=== PATIENT | female | born 1955 | race Caucasian/White ===

== ENCOUNTER 2019-04-14 09:54 | Outpatient (CLI) | payer BC ==
--- NOTE | 2019-04-14 10:32 | MMO ---
Bilateral MAMMO Bilat Screen [facility]. CLINICAL HISTORY: Patient is 63 years old and is seen for screening. The patient has no family history of breast cancer. The patient has no personal history of cancer. VIEWS: The views performed were: bilateral craniocaudal with tomosynthesis; bilateral mediolateral oblique with tomosynthesis; and left mediolateral oblique. FILMS COMPARED: The present examination has been compared to prior imaging studies performed at [facility] on 02/14/2012, 02/15/2012, 11/12/2013 and 05/16/2016. This study has been interpreted with the assistance of computer-aided detection. MAMMOGRAM FINDINGS: There are scattered fibroglandular densities. Finding 1: There are stable benign appearing calcifications seen in both breasts. Finding 2: There are nodules seen in both breasts. There are no suspicious masses, suspicious calcifications, or new areas of architectural distortion. IMPRESSION: THERE IS NO MAMMOGRAPHIC EVIDENCE OF MALIGNANCY. A ROUTINE FOLLOW-UP MAMMOGRAM IN 1 YEAR IS RECOMMENDED. THE RESULTS OF THIS EXAM WERE SENT TO THE PATIENT. ACR BI-RADS Category 2 - Benign finding MAMMOGRAPHY NOTE: 1. A negative mammogram report should not delay a biopsy if a dominant of clinically suspicious mass is present. 2. Approximately 10% to 15% of breast cancers are not detected by mammography. 3. Adenosis and dense breasts may obscure an underlying neoplasm. Reported by: ARPIT ESPINAL MD Electonically Signed: [id number]
== END 2019-04-14 09:55 | disposition home or self-care (01) ==
LOC: BICMAMMO 09:54
PROVIDERS: ATTEND Physician Assistant
DX: Z12.31 Encounter for screening mammogram for malignant neoplasm of breast (principal)
CPT/HCPCS: 77063; 77067

== ENCOUNTER 2020-08-30 08:59 | Inpatient (IN) | payer OTHER, MEDICARE, BC ==
[2020-08-30 09:36] LABS: #Basophils 0.1 thou/uL (0.0-0.2); #Eosinphils 0.2 thou/uL (0.0-0.7); #Lymphocytes 2.4 thou/uL (1.20-3.40); #Monocytes 0.3 thou/uL (0.11-0.59); #Neutrophils 6.4 thou/uL (1.40-6.50); %Basophils 0.5 % (0.0-1.0); %Eosinophils 2.3 % (0.0-10.0); %Lymphocytes 25.9 % (21.0-51.0); %Monocytes 3.3 % (0.0-10.0); %Neutrophils 68.1 % (42.0-75.0); Hemoglobin 13.8 g/dL (12.0-16.0); Mean Corpuscular Hemoglobin 27.9 pg (27.0-31.0); Mean Corpuscular Volume 87.1 fL (78.0-98.0); Mean Platelet Volume 7.3 fL (7.4-10.4); Platelet Count 251 thou/uL (130-400); RBC Distribution Width 13.1 % (11.5-14.5); Red Blood Cell (RBC) Count 4.93 mill/uL (4.20-5.40); White Blood Cell (WBC) Count 9.5 thou/uL (4.8-10.8)
[2020-08-30] MEDS ORDERED: Iopamidol-370 76% 500 ML 1 ML ONE (09:46)
[2020-08-30 09:52] LABS: ALT (SGPT) 33 U/L (8-55); AST (SGOT) 27 U/L (5-34); Albumin 4.1 g/dL (3.4-4.8); Alkaline Phosphatase 108 U/L (40-110); Anion Gap 10 mmol/L (10-20); BUN (Urea Nitrogen) 13 mg/dL (9.8-20.1); Bilirubin, Total 0.4 mg/dL (0.2-1.2); Calc. Creatinine Clearance 0 mL/min (70-130); Calcium 8.9 mg/dL (7.8-10.44); Carbon Dioxide 28 mmol/L (23-31); Chloride 104 mmol/L (98-107); Globulin 3.2 g/dL (2.4-3.5); Glucose 102 mg/dL (80-115); Potassium 3.7 mmol/L (3.5-5.1); Protein, Total 7.3 g/dL (5.8-8.1); Sodium 138 mmol/L (136-145)
[2020-08-30] MEDS ORDERED: Morphine 4 MG/ML VIAL ONE (13:23)
[2020-08-30] MEDS ORDERED: Morphine 2 MG/ML VIAL ONE (13:23)
[2020-08-30] MEDS ORDERED: Pantoprazole 40 MG VIAL ONE (13:54)
[2020-08-30] MEDS ORDERED: Fentanyl 100 MCG/2 ML VIAL ONE (13:54)
[2020-08-30] MEDS ORDERED: Ondansetron PF 4 MG/2 ML Vial ONE (13:54)
[2020-08-30] MEDS ORDERED: traMADol HCl 50 MG TAB PO PRN (14:49)
[2020-08-30] MEDS ORDERED: Ibuprofen 200 MG TAB ONE (16:04)
[2020-08-30] MEDS ORDERED: Acetaminophen 325 MG TAB ONE (16:04)
[2020-08-30] MEDS: Acetaminophen 325 MG TAB PO SCH ×2 (16:18→21:31)
[2020-08-30] MEDS: Gabapentin 300 MG CAP PO SCH ×2 (16:20→21:30)
[2020-08-30] MEDS: Lactated Ringer's 1,000 ML IV SCH (16:21)
[2020-08-30] MEDS: Ibuprofen 200 MG TAB PO SCH ×2 (16:21→22:42)
[2020-08-30] MEDS ORDERED: Dextrose 5% in Water 1,000 ML IV PRN (19:31)
[2020-08-30] MEDS ORDERED: Dextrose 50% Abboject 50 ML SYRINGE SLOW IVP PRN (19:31)
[2020-08-30] MEDS ORDERED: Ondansetron PF 4 MG/2 ML Vial IVP PRN (19:31)
[2020-08-30] MEDS ORDERED: Lorazepam 2 MG/ML VIAL SLOW IVP PRN (19:31)
[2020-08-30 19:33] VITALS: BMI 35.2
[2020-08-30] MEDS ORDERED: Famotidine/PF 20 mg/2ml Vial SLOW IVP SCH (21:00)
[2020-08-30] MEDS ORDERED: Cyclobenzaprine 10 MG TAB PO PRN (21:18)
[2020-08-30] MEDS: traMADol HCl 50 MG TAB PO SCH (21:29)
[2020-08-30] MEDS: Senokot S 8.6-50 MG TAB PO SCH (21:30)
[2020-08-30] MEDS: Morphine 2 MG/ML VIAL SLOW IVP PRN (21:32)
[2020-08-30 23:09] LABS: SARS-CoV-2 PCR by NAA Not Detected (NotDetected)
[2020-08-31] MEDS: traMADol HCl 50 MG TAB PO SCH ×5 (01:33→23:58)
[2020-08-31] MEDS: Lactated Ringer's 1,000 ML IV SCH ×3 (03:04→14:21)
[2020-08-31] MEDS: Acetaminophen 325 MG TAB PO SCH ×4 (03:04→21:50)
[2020-08-31] MEDS: Morphine 2 MG/ML VIAL SLOW IVP PRN (03:11)
[2020-08-31 04:46] LABS: #Lymphocytes 2.2 thou/uL (1.20-3.40); #Monocytes 0.3 thou/uL (0.11-0.59); #Neutrophils 3.7 thou/uL (1.40-6.50); %Basophils 0.7 % (0.0-1.0); %Eosinophils 0.8 % (0.0-10.0); %Lymphocytes 34.6 % (21.0-51.0); %Monocytes 4.2 % (0.0-10.0); %Neutrophils 59.7 % (42.0-75.0); Hemoglobin 10.8 g/dL (12.0-16.0); Mean Corpuscular HGB CONC 33.4 g/dL (32.0-36.0); Mean Corpuscular Hemoglobin 29.2 pg (27.0-31.0); Mean Corpuscular Volume 87.4 fL (78.0-98.0); Mean Platelet Volume 7.6 fL (7.4-10.4); Platelet Count 219 thou/uL (130-400); Red Blood Cell (RBC) Count 3.68 mill/uL (4.20-5.40); White Blood Cell (WBC) Count 6.3 thou/uL (4.8-10.8)
[2020-08-31] MEDS: Ibuprofen 200 MG TAB PO SCH ×3 (06:15→23:56)
[2020-08-31] MEDS ORDERED: Famotidine 20 MG TAB PO SCH (09:00)
[2020-08-31] MEDS: Gabapentin 300 MG CAP PO SCH ×3 (10:59→23:52)
[2020-08-31] MEDS: Polyethylene Glycol 3350 17 GM Packet PO SCH (11:01)
[2020-08-31] MEDS: Senokot S 8.6-50 MG TAB PO SCH ×2 (11:01→21:52)
[2020-08-31] MEDS ORDERED: Dicyclomine 10 MG CAP PO PRN (17:52)
[2020-08-31] MEDS: Mometasone 100 MCG/Formoterol 5 MCG 120 PUFF INHALER INH SCH (18:54)
[2020-08-31] MEDS: Aspirin 81 mg Enteric Coated Tablet PO SCH (21:52)
[2020-09-01] MEDS: traMADol HCl 50 MG TAB PO SCH ×4 (06:06→23:48)
[2020-09-01] MEDS: Levothyroxine Sodium 25 MCG TAB PO SCH (06:07)
[2020-09-01] MEDS: Acetaminophen 325 MG TAB PO SCH ×4 (06:11→20:07)
[2020-09-01] MEDS: Mometasone 100 MCG/Formoterol 5 MCG 120 PUFF INHALER INH SCH ×2 (07:52→18:33)
[2020-09-01] MEDS: Senokot S 8.6-50 MG TAB PO SCH ×2 (08:00→20:07)
[2020-09-01] MEDS: Gabapentin 300 MG CAP PO SCH ×3 (08:00→20:07)
[2020-09-01] MEDS: Polyethylene Glycol 3350 17 GM Packet PO SCH (08:00)
[2020-09-01] MEDS: Ibuprofen 200 MG TAB PO SCH ×3 (08:01→23:48)
[2020-09-01] MEDS: Magnesium Oxide 250 MG TAB PO SCH (08:01)
[2020-09-01] MEDS: Aspirin 81 mg Enteric Coated Tablet PO SCH ×2 (08:02→20:07)
[2020-09-01] MEDS ORDERED: LUTEIN PO SCH (09:00)
[2020-09-01] MEDS ORDERED: ZEAXANTHIN PO SCH (09:00)
[2020-09-02] MEDS: traMADol HCl 50 MG TAB PO SCH ×3 (04:54→18:01)
[2020-09-02] MEDS: Acetaminophen 325 MG TAB PO SCH ×4 (04:55→20:33)
[2020-09-02] MEDS: Levothyroxine Sodium 25 MCG TAB PO SCH (04:55)
[2020-09-02] MEDS: Mometasone 100 MCG/Formoterol 5 MCG 120 PUFF INHALER INH SCH ×2 (06:42→18:50)
[2020-09-02] MEDS: Aspirin 81 mg Enteric Coated Tablet PO SCH ×2 (09:19→20:33)
[2020-09-02] MEDS: Magnesium Oxide 250 MG TAB PO SCH (09:19)
[2020-09-02] MEDS: Polyethylene Glycol 3350 17 GM Packet PO SCH (09:19)
[2020-09-02] MEDS: Senokot S 8.6-50 MG TAB PO SCH ×2 (09:20→20:33)
[2020-09-02] MEDS: Gabapentin 300 MG CAP PO SCH ×3 (09:20→20:33)
[2020-09-02] MEDS: Ibuprofen 200 MG TAB PO SCH ×2 (09:21→15:08)
[2020-09-02 10:01] LABS: Anion Gap 8 mmol/L (10-20); BUN (Urea Nitrogen) 10 mg/dL (9.8-20.1); CK (CPK) 86 U/L (29-168); Calc. Creatinine Clearance 97 mL/min (70-130); Calcium 8.9 mg/dL (7.8-10.44); Carbon Dioxide 29 mmol/L (23-31); Chloride 103 mmol/L (98-107); Glucose 86 mg/dL (80-115); Magnesium 1.7 mg/dL (1.6-2.6); Phosphorus 3.2 mg/dL (2.3-4.7); Potassium 3.9 mmol/L (3.5-5.1); Sodium 136 mmol/L (136-145)
[2020-09-03] MEDS: Ibuprofen 200 MG TAB PO SCH ×3 (00:27→15:12)
[2020-09-03] MEDS: traMADol HCl 50 MG TAB PO SCH ×4 (00:29→18:06)
[2020-09-03] MEDS: Acetaminophen 325 MG TAB PO SCH ×3 (03:23→15:10)
[2020-09-03] MEDS: Levothyroxine Sodium 25 MCG TAB PO SCH (05:28)
[2020-09-03] MEDS: Mometasone 100 MCG/Formoterol 5 MCG 120 PUFF INHALER INH SCH (07:22)
[2020-09-03] MEDS: Senokot S 8.6-50 MG TAB PO SCH (08:44)
[2020-09-03] MEDS: Gabapentin 300 MG CAP PO SCH ×2 (08:44→15:11)
[2020-09-03] MEDS: Magnesium Oxide 250 MG TAB PO SCH (08:48)
[2020-09-03] MEDS: Polyethylene Glycol 3350 17 GM Packet PO SCH (08:50)
[2020-09-03] MEDS: Aspirin 81 mg Enteric Coated Tablet PO SCH (08:50)
[2020-09-03 19:45] VITALS: BP 139/70; TEMP 97.7
== END 2020-09-03 19:46 | DRG 914 ==
LOC: ERS 08:59 → ERHOLD 14:32 → 2NO 19:16 → SURG B 09-02 22:14
PROVIDERS: ADMIT Surgery; ATTEND Surgery
DX: S86.892A Other injury of other muscle(s) and tendon(s) at lower leg level, left leg, initial encounter (principal); S22.20XA Unspecified fracture of sternum, initial encounter for closed fracture; Z20.822 Contact with and (suspected) exposure to COVID-19; E03.9 Hypothyroidism, unspecified; K21.9 Gastro-esophageal reflux disease without esophagitis; V43.52XA Car driver injured in collision with other type car in traffic accident, initial encounter; Y92.410 Unspecified street and highway as the place of occurrence of the external cause; Z79.899 Other long term (current) drug therapy; Z79.890 Hormone replacement therapy
CPT/HCPCS: 36415; 70450; 71260; 72125; 74177; 75635; 80048; 80053; 82550; 83735; 84100; 84484; 85025; 87635; 93005; 93970; 96374; 96375; C9113; G0390; J2270; J2405; J3010; Q9967; S0028; U0003; U0005

== ENCOUNTER 2020-09-14 11:52 | Outpatient (CLI) | payer MEDICARE, BC | END 2020-09-14 11:53 | disposition home or self-care (01) | LOC: BICRAD 11:52 | PROVIDERS: ATTEND Physician Assistant | DX: M79.662 Pain in left lower leg (principal) ==

== ENCOUNTER 2021-01-31 07:54 | Outpatient (CLI) | payer MEDICARE, BC | END 2021-01-31 07:55 | disposition home or self-care (01) | LOC: BICMAMMO 07:54 | PROVIDERS: ATTEND Physician Assistant | DX: Z12.31 Encounter for screening mammogram for malignant neoplasm of breast (principal); Z13.820 Encounter for screening for osteoporosis; M85.851 Other specified disorders of bone density and structure, right thigh; M85.852 Other specified disorders of bone density and structure, left thigh; Z87.81 Personal history of (healed) traumatic fracture | CPT/HCPCS: 77063; 77067; 77080 ==

== ENCOUNTER 2021-03-09 14:02 | Outpatient (CLI) | payer MEDICARE, BC ==
[~2021-03-09 14:02] MED LIST: Iopamidol 370 76% 100 ML VIAL ONE
== END 2021-03-09 14:03 | disposition home or self-care (01) ==
LOC: BICCT 14:02
PROVIDERS: ATTEND Physician Assistant
DX: R91.1 Solitary pulmonary nodule (principal)
CPT/HCPCS: 71260; 82565; Q9967

== ENCOUNTER 2022-02-23 12:23 | Outpatient (CLI) | payer MEDICARE, BC | END 2022-02-23 12:24 | disposition home or self-care (01) | LOC: BICMAMMO 12:23 | PROVIDERS: ATTEND Physician Assistant | DX: Z12.31 Encounter for screening mammogram for malignant neoplasm of breast (principal); R91.1 Solitary pulmonary nodule; N63.10 Unspecified lump in the right breast, unspecified quadrant | CPT/HCPCS: 71260; 77063; 77067; 82565 ==

== ENCOUNTER 2023-03-20 13:01 | Outpatient (CLI) | payer MEDICARE, BC | END 2023-03-20 13:02 | disposition home or self-care (01) | LOC: BICCT 13:01 | PROVIDERS: ATTEND Physician Assistant | DX: R91.1 Solitary pulmonary nodule (principal); R91.8 Other nonspecific abnormal finding of lung field | CPT/HCPCS: 71260; 82565 ==

== ENCOUNTER 2023-05-15 12:42 | Outpatient (CLI) | payer MEDICARE, BC | END 2023-05-15 12:43 | disposition home or self-care (01) | LOC: BICMAMMO 12:42 | PROVIDERS: ATTEND Physician Assistant | DX: Z12.31 Encounter for screening mammogram for malignant neoplasm of breast (principal); N64.89 Other specified disorders of breast | CPT/HCPCS: 77063; 77067 ==

== ENCOUNTER 2023-05-18 09:27 | Outpatient (CLI) | payer MEDICARE, BC | END 2023-05-18 09:28 | disposition home or self-care (01) | LOC: BICMAMMO 09:27 | PROVIDERS: ATTEND Physician Assistant | DX: N64.89 Other specified disorders of breast (principal) | CPT/HCPCS: 76642; 77065; G0279 ==

== ENCOUNTER 2023-07-12 14:07 | Outpatient (CLI) | payer BC, MEDICARE | END 2023-07-12 14:08 | disposition home or self-care (01) | LOC: BICMAMMO 14:07 | PROVIDERS: ATTEND Physician Assistant | DX: Z13.820 Encounter for screening for osteoporosis (principal); Z78.0 Asymptomatic menopausal state; M85.851 Other specified disorders of bone density and structure, right thigh; M85.852 Other specified disorders of bone density and structure, left thigh | CPT/HCPCS: 77080 ==

== ENCOUNTER 2023-12-25 13:42 | Outpatient (CLI) | payer MEDICARE | END 2023-12-25 13:43 | disposition home or self-care (01) | LOC: BICMAMMO 13:42 | PROVIDERS: ATTEND Nurse Practitioner Family | DX: N63.10 Unspecified lump in the right breast, unspecified quadrant (principal); N64.89 Other specified disorders of breast | CPT/HCPCS: 76642; 77065; G0279 ==

== ENCOUNTER 2025-02-04 14:55 | Outpatient (CLI) | payer MEDICARE | END 2025-02-04 14:56 | disposition home or self-care (01) | LOC: RAD 14:55 | PROVIDERS: ATTEND Internal Medicine | DX: J45.21 Mild intermittent asthma with (acute) exacerbation (principal); R06.00 Dyspnea, unspecified | CPT/HCPCS: 71046 ==